=== PATIENT | male | born 1975 | race Two or more races ===

== ENCOUNTER 2024-02-25 21:30 | Emergency (ER) | payer OTHER ==
[~2024-02-25] VITALS: Ht 157.5 cm; Wt 49.0 kg
[2024-02-25] MEDS ORDERED: NAPR500T6 PO (23:04)
[2024-02-26] MEDS ORDERED: KETOROLAC TROMETHAMINE 30 MG INJ ONE (00:14)
[2024-02-26] MEDS: KETOROLAC TROMETHAMINE 30 MG INJ IM ONE (00:21)
[2024-02-26 04:41] VITALS: BP 119/78; TEMP 98; O2SAT 99
== END 2024-02-26 00:15 | disposition home or self-care (01) ==
LOC: ER 21:33
DX: S63.592A Other specified sprain of left wrist, initial encounter (principal); E11.9 Type 2 diabetes mellitus without complications; W10.8XXA Fall (on) (from) other stairs and steps, initial encounter; Y93.89 Activity, other specified; Y92.89 Other specified places as the place of occurrence of the external cause; Y99.0 Civilian activity done for income or pay
CPT/HCPCS: 99284; 71101; 73060; 73090; 73110; 73130; 96372; J1885; A4606; A4663